=== PATIENT | female | born 1935 | race Caucasian/White ===

== ENCOUNTER 2019-07-15 16:15 | Inpatient (IN) ==
[2019-07-15 18:10] LABS: Bilirubin,Urine Small (Negative); Blood,Urine Negative (Negative); Clarity,Urine Cloudy (Clear); Color,Urine Dark Yellow (Yellow); Glucose,Urine (UA) Normal (Normal); Ketones,Urine 15 mg/dL (Negative); Leukocyte Esterase,Urine Moderate (Negative); Nitrite,Urine Negative (Negative); Protein,Urine Trace mg/dL (Neg-Trace); Specific Gravity,Urine 1.025 (1.010-1.025); Urobilinogen,Urine Normal (Normal)
[2019-07-15 18:12] LABS: Bacteria,Urine None Seen per hpf (None-Few); Hyaline Casts,Urine Few per lpf (None-Few); Squamous Epithelial Cell,Urine Many per lpf (None-Few); WBC,Urine 30-50 per hpf (0-3)
[2019-07-15 18:28] LABS: Calcium Oxalate Crystals,Urine Present
[2019-07-15] MEDS ORDERED: SODIUM CHLORIDE/NAHCO3/KCL/PEG 4,000 ML SOLN.RECON PO ONE ×2 (19:25→22:04)
[2019-07-15] MEDS ORDERED: *HR* HYDROcodone/Acet 5/325 mg TABLET PO ONE (22:44)
[2019-07-16] MEDS ORDERED: 0.9 % Sodium Chloride 1,000 ML IVC SCH (06:30)
[2019-07-16] MEDS ORDERED: Naloxone 0.4 MG/ML INJ IVP PRN (06:30)
[2019-07-16] MEDS ORDERED: Ipratropium/Albuterol Neb 3 ML IH PRN (06:33)
[2019-07-16] MEDS ORDERED: Albuterol 2.5 MG/3 ML NEBULIZER IH PRN (06:33)
[2019-07-16 07:25] LABS: Hematocrit 37.3 % (35.3-44.9); Hemoglobin 11.8 g/dL (11.5-15.4); Mean Corpuscular HGB Conc 31.6 g/dL (31.6-35.5); Mean Corpuscular Hemoglobin 30.6 pg (28.0-33.3); Mean Corpuscular Volume 96.9 fL (83.0-100.0); Mean Platelet Volume 8.8 fL (9.4-12.4); Platelet Count 311 K/mcL (140-400); Red Blood Count 3.85 M/mcL (3.82-4.97); Red Cell Distribution Width 12.5 % (11.5-14.5); White Blood Count 7.6 K/mcL (4.3-11.1)
[2019-07-16 07:46] LABS: BUN/Creatinine Ratio 19 (6-26); Blood Urea Nitrogen 17 mg/dL (8-23); Calcium 9.4 mg/dL (8.6-10.3); Carbon Dioxide 27 mEq/L (23-29); Chloride 104 mEq/L (98-107); Glucose 90 mg/dL (70-105); Magnesium 1.9 mg/dL (1.6-2.6); Osmolality,Calculated 287 (280-300); Potassium 3.9 mEq/L (3.5-5.1); Sodium 138 mEq/L (136-145); eGFR For African Americans > 60 (> 60); eGFR For Non-African Americans > 60 (> 60)
[2019-07-16] MEDS: predniSONE 5 MG TABLET PO SCH (08:01)
[2019-07-16] MEDS: Gabapentin 100 MG CAPSULE PO SCH ×2 (08:01→20:29)
[2019-07-16] MEDS: Aspirin 81 MG TAB.CHEW PO SCH ×2 (08:01→20:29)
[2019-07-16] MEDS: Lisinopril 20 MG TABLET PO SCH (08:01)
[2019-07-16] MEDS: Famotidine 20 MG TABLET PO SCH (08:02)
[2019-07-16] MEDS: Verapamil ER (24 HR) 240 MG TABLET.ER PO SCH (08:03)
[2019-07-16] MEDS ORDERED: Dextrose Gel 15 GM/37.5 ML TUBE PO PRN ×2 (09:53)
[2019-07-16] MEDS ORDERED: D5% in Water 1,000 ML IVC PRN (09:53)
[2019-07-16] MEDS ORDERED: *HR* Dextrose 50 % in Water (Syg) 50 ML SYRINGE IVP PRN (09:53)
[2019-07-16] MEDS ORDERED: D5% in 0.9% NACL 1,000 ML IVC SCH (10:00)
[2019-07-16] MEDS: Insulin LISPRO 300 UNITS/3 ML VIAL SQ SCH ×2 (11:33→18:08)
[2019-07-16] MEDS ORDERED: Simethicone 80 MG TAB.CHEW PO PRN (15:00)
[2019-07-16] MEDS ORDERED: *HR* FentaNYL PATCH 25 MCG PATCH TD SCH (18:00)
[2019-07-16] MEDS: traZODone 50 MG TABLET PO SCH (20:29)
[2019-07-17 06:12] LABS: Hematocrit 34.6 % (35.3-44.9); Mean Corpuscular HGB Conc 31.8 g/dL (31.6-35.5); Mean Corpuscular Volume 97.5 fL (83.0-100.0); Mean Platelet Volume 8.6 fL (9.4-12.4); Platelet Count 267 K/mcL (140-400); Red Blood Count 3.55 M/mcL (3.82-4.97); Red Cell Distribution Width 12.4 % (11.5-14.5); White Blood Count 6.6 K/mcL (4.3-11.1)
[2019-07-17 06:31] LABS: BUN/Creatinine Ratio 19 (6-26); Blood Urea Nitrogen 14 mg/dL (8-23); Calcium 9.3 mg/dL (8.6-10.3); Carbon Dioxide 29 mEq/L (23-29); Chloride 107 mEq/L (98-107); Glucose 95 mg/dL (70-105); Osmolality,Calculated 294 (280-300); Potassium 4.1 mEq/L (3.5-5.1); Sodium 142 mEq/L (136-145); eGFR For African Americans > 60 (> 60); eGFR For Non-African Americans > 60 (> 60)
[2019-07-17] MEDS: Lisinopril 20 MG TABLET PO SCH (08:27)
[2019-07-17] MEDS: Verapamil ER (24 HR) 240 MG TABLET.ER PO SCH (08:27)
[2019-07-17] MEDS: Gabapentin 100 MG CAPSULE PO SCH ×2 (08:27→21:32)
[2019-07-17] MEDS: Famotidine 20 MG TABLET PO SCH (08:27)
[2019-07-17] MEDS: predniSONE 5 MG TABLET PO SCH (08:28)
[2019-07-17] MEDS: Aspirin 81 MG TAB.CHEW PO SCH ×2 (08:28→21:33)
[2019-07-17] MEDS ORDERED: Ibuprofen 400 MG TABLET PO ONE (12:04)
[2019-07-17] MEDS ORDERED: Acetaminophen 325 MG TABLET PO PRN (13:28)
[2019-07-17] MEDS: Budesonide Neb 0.25 MG/2 ML IH SCH ×2 (20:47→21:34)
[2019-07-17] MEDS: traZODone 50 MG TABLET PO SCH (21:33)
[2019-07-18 01:19] LABS: Hematocrit 35.8 % (35.3-44.9); Hemoglobin 11.3 g/dL (11.5-15.4); Mean Corpuscular HGB Conc 31.6 g/dL (31.6-35.5); Mean Corpuscular Hemoglobin 30.7 pg (28.0-33.3); Mean Corpuscular Volume 97.3 fL (83.0-100.0); Mean Platelet Volume 9.8 fL (9.4-12.4); Platelet Count 262 K/mcL (140-400); Red Blood Count 3.68 M/mcL (3.82-4.97); Red Cell Distribution Width 12.4 % (11.5-14.5); White Blood Count 8.5 K/mcL (4.3-11.1)
[2019-07-18 01:38] LABS: BUN/Creatinine Ratio 18 (6-26); Blood Urea Nitrogen 18 mg/dL (8-23); Calcium 9.8 mg/dL (8.6-10.3); Carbon Dioxide 29 mEq/L (23-29); Chloride 105 mEq/L (98-107); Glucose 120 mg/dL (70-105); Osmolality,Calculated 291 (280-300); Potassium 4.2 mEq/L (3.5-5.1); Sodium 139 mEq/L (136-145); eGFR For African Americans > 60 (> 60); eGFR For Non-African Americans 53 (> 60)
[2019-07-18] MEDS: Budesonide Neb 0.25 MG/2 ML IH SCH (07:39)
[2019-07-18] MEDS ORDERED: Patient Taking Own Medication 1 EACH IH SCH (09:00)
[2019-07-18] MEDS ORDERED: Famotidine 20 MG TABLET PO SCH (09:00)
[2019-07-18] MEDS: Verapamil ER (24 HR) 240 MG TABLET.ER PO SCH (09:57)
[2019-07-18] MEDS: Lisinopril 20 MG TABLET PO SCH (09:57)
[2019-07-18] MEDS: Aspirin 81 MG TAB.CHEW PO SCH (10:00)
[2019-07-18] MEDS: Gabapentin 100 MG CAPSULE PO SCH (10:00)
[2019-07-18] MEDS ORDERED: Isovue-300 50ML VIAL ONE (17:25)
[2019-07-18] MEDS ORDERED: *HR* FentaNYL (PF) 100 MCG/2 ML VIAL ONE (17:31)
[2019-07-18] MEDS ORDERED: *HR* Propofol 200 MG/20 ML VIAL IVP ONE (17:31)
[2019-07-18] MEDS ORDERED: Acetaminophen IV 1,000 MG/100 ML INFUS..BTL ONE (17:32)
[2019-07-18] MEDS ORDERED: Lidocaine HCL 4 ML Topical Solution (Laryng-O-Jet Kit Sterile Pak) TP ONE (17:36)
[2019-07-18] MEDS ORDERED: Lidocaine -MPF 2% 2 ML VIAL ONE (17:36)
[2019-07-18] MEDS ORDERED: *HR* Succinylcholine 200 MG/10 ML VIAL IVP ONE (17:36)
[2019-07-18] MEDS ORDERED: *HR* Rocuronium Bromide 50 MG/5 ML VIAL ONE (17:36)
[2019-07-18] MEDS ORDERED: Ondansetron 4 MG/2 ML VIAL ONE (17:54)
[2019-07-18] MEDS ORDERED: EPHEDrine 50 MG/ML VIAL ONE (18:02)
[2019-07-18] MEDS ORDERED: *HR* OxyCODONE Immed Rel 5 MG TABLET PO ONE (18:53)
[2019-07-18] MEDS ORDERED: Ringers Solution, Lactated 1,000 ML ONE (19:18)
[2019-07-18] MEDS ORDERED: Ketoconazole Shampoo 120 ML BOTTLE TP PRN (19:48)
[2019-07-18] MEDS ORDERED: Albuterol 2.5 MG/3 ML NEBULIZER IH PRN (19:48)
[2019-07-18] MEDS ORDERED: *HR* OxyCODONE Immed Rel 5 MG TABLET PO PRN (19:48)
[2019-07-18] MEDS ORDERED: NON-FORMULARY MEDICATION 1 EACH EACH (Cranberry 500 MG) PO SCH (21:00)
[2019-07-18] MEDS: Lactobacillus 1 EACH CAP.SPRINK PO SCH (21:39)
[2019-07-19 07:08] LABS: Basophils % 0.4 %; Eosinophils # 0.2 K/mcL (0.0-0.6); Eosinophils % 3.2 %; Hematocrit 34.6 % (35.3-44.9); Hemoglobin 10.6 g/dL (11.5-15.4); Immature Granulocytes % 0.4 % (0-4); Lymphocytes # 1.1 K/mcL (0.6-4.6); Lymphocytes % 18.5 %; Mean Corpuscular HGB Conc 30.6 g/dL (31.6-35.5); Mean Corpuscular Hemoglobin 30.5 pg (28.0-33.3); Mean Corpuscular Volume 99.7 fL (83.0-100.0); Mean Platelet Volume 8.8 fL (9.4-12.4); Monocytes # 0.5 K/mcL (0.0-1.3); Monocytes % 8.1 %; Neutrophils # 3.9 K/mcL (1.6-8.9); Platelet Count 229 K/mcL (140-400); Red Blood Count 3.47 M/mcL (3.82-4.97); Red Cell Distribution Width 12.4 % (11.5-14.5); Segmented Neutrophils % 69.4 %; White Blood Count 5.7 K/mcL (4.3-11.1)
[2019-07-19] MEDS: Ondansetron 4 MG/2 ML VIAL IVP PRN ×2 (07:19→20:01)
[2019-07-19 07:28] LABS: Alanine Aminotransferase 11 Units/L (7-52); Albumin 2.9 g/dL (3.5-5.7); Albumin/Globulin Ratio 1.4 (1.1-2.2); Alkaline Phosphatase 69 Units/L (34-104); Aspartate Amino Transferase 18 Units/L (13-39); BUN/Creatinine Ratio 17 (6-26); Bilirubin,Total 0.3 mg/dL (0.3-1.0); Blood Urea Nitrogen 14 mg/dL (8-23); Calcium 9.4 mg/dL (8.6-10.3); Carbon Dioxide 32 mEq/L (23-29); Chloride 106 mEq/L (98-107); Globulin 2.1 g/dL (2.4-3.5); Glucose 93 mg/dL (70-105); Osmolality,Calculated 296 (280-300); Potassium 4.2 mEq/L (3.5-5.1); Sodium 143 mEq/L (136-145); eGFR For African Americans > 60 (> 60); eGFR For Non-African Americans > 60 (> 60)
[2019-07-19] MEDS ORDERED: Acetaminophen 325 MG TABLET PO PRN (07:53)
[2019-07-19] MEDS ORDERED: Ipratropium/Albuterol Neb 3 ML IH PRN (07:54)
[2019-07-19] MEDS ORDERED: Naloxone 0.4 MG/ML INJ IVP PRN (07:58)
[2019-07-19] MEDS ORDERED: *HR* OxyCODONE Immed Rel 5 MG TABLET PO PRN (07:59)
[2019-07-19] MEDS ORDERED: *HR* OxyCODONE Immed Rel 15 MG TABLET PO PRN (08:02)
[2019-07-19] MEDS: Famotidine 20 MG TABLET PO SCH (09:21)
[2019-07-19] MEDS: Gabapentin 100 MG CAPSULE PO SCH ×2 (09:25→20:01)
[2019-07-19] MEDS: Lisinopril 20 MG TABLET PO SCH (09:39)
[2019-07-19] MEDS: *HR* FentaNYL PATCH 25 MCG PATCH TD SCH (09:42)
[2019-07-19] MEDS: Lactobacillus 1 EACH CAP.SPRINK PO SCH ×2 (09:50→20:01)
[2019-07-19] MEDS: Budesonide Neb 0.25 MG/2 ML IH SCH ×2 (11:01→22:44)
[2019-07-19] MEDS: Nystatin POWDER 30 GM BOTTLE TP SCH ×2 (14:20→20:01)
[2019-07-19 20:12] LABS: Bilirubin,Urine Negative (Negative); Blood,Urine Trace (Negative); Clarity,Urine Cloudy (Clear); Color,Urine Yellow (Yellow); Glucose,Urine (UA) Normal (Normal); Ketones,Urine Negative (Negative); Leukocyte Esterase,Urine Large (Negative); Nitrite,Urine Negative (Negative); Protein,Urine Negative (Neg-Trace); Specific Gravity,Urine 1.016 (1.010-1.025); Urobilinogen,Urine Normal (Normal)
[2019-07-19 20:14] LABS: Bacteria,Urine None Seen per hpf (None-Few); Hyaline Casts,Urine None Seen per lpf (None-Few); RBC,Urine 0-3 per hpf (0-3); Squamous Epithelial Cell,Urine Many per lpf (None-Few); WBC,Urine TNTC per hpf (0-3)
[2019-07-20] MEDS: Acetaminophen 325 MG TABLET PO PRN ×3 (00:42→17:04)
[2019-07-20] MEDS: Budesonide Neb 0.25 MG/2 ML IH SCH ×2 (08:19→22:08)
[2019-07-20] MEDS ORDERED: cefTRIAXone 1,000 MG in 0.9 % Sodium Chloride Mini Bag 100 ML IVPB SCH (09:00)
[2019-07-20] MEDS: Lactobacillus 1 EACH CAP.SPRINK PO SCH ×2 (09:07→20:01)
[2019-07-20] MEDS: Famotidine 20 MG TABLET PO SCH (09:08)
[2019-07-20] MEDS: Gabapentin 100 MG CAPSULE PO SCH ×2 (09:08→20:00)
[2019-07-20] MEDS: Lisinopril 20 MG TABLET PO SCH (09:08)
[2019-07-20] MEDS: Nystatin POWDER 30 GM BOTTLE TP SCH ×2 (09:09→20:01)
[2019-07-20 10:05] LABS: Basophils % 0.6 %; Eosinophils # 0.2 K/mcL (0.0-0.6); Eosinophils % 3.3 %; Hemoglobin 11.2 g/dL (11.5-15.4); Immature Granulocytes % 0.2 % (0-4); Lymphocytes # 1.3 K/mcL (0.6-4.6); Lymphocytes % 23.3 %; Mean Corpuscular HGB Conc 30.3 g/dL (31.6-35.5); Mean Corpuscular Hemoglobin 30.8 pg (28.0-33.3); Mean Corpuscular Volume 101.6 fL (83.0-100.0); Mean Platelet Volume 9.2 fL (9.4-12.4); Monocytes # 0.5 K/mcL (0.0-1.3); Monocytes % 8.5 %; Neutrophils # 3.5 K/mcL (1.6-8.9); Platelet Count 234 K/mcL (140-400); Red Blood Count 3.64 M/mcL (3.82-4.97); Red Cell Distribution Width 12.1 % (11.5-14.5); Segmented Neutrophils % 64.1 %; White Blood Count 5.4 K/mcL (4.3-11.1)
[2019-07-20 10:21] LABS: Alanine Aminotransferase 8 Units/L (7-52); Albumin 3.1 g/dL (3.5-5.7); Albumin/Globulin Ratio 1.3 (1.1-2.2); Alkaline Phosphatase 66 Units/L (34-104); Aspartate Amino Transferase 17 Units/L (13-39); BUN/Creatinine Ratio 13 (6-26); Bilirubin,Total 0.4 mg/dL (0.3-1.0); Blood Urea Nitrogen 11 mg/dL (8-23); Calcium 9.7 mg/dL (8.6-10.3); Carbon Dioxide 32 mEq/L (23-29); Chloride 102 mEq/L (98-107); Globulin 2.4 g/dL (2.4-3.5); Glucose 101 mg/dL (70-105); Osmolality,Calculated 288 (280-300); Potassium 4.1 mEq/L (3.5-5.1); Sodium 139 mEq/L (136-145); Total Protein 5.5 g/dL (6.4-8.9); eGFR For African Americans > 60 (> 60); eGFR For Non-African Americans > 60 (> 60)
[2019-07-20] MEDS: REVEFENACIN 175 MCG IH SCH (11:10)
[2019-07-20] MEDS: Ipratropium/Albuterol Neb 3 ML IH SCH ×2 (15:25→22:08)
[2019-07-20] MEDS: Budesonide/Formoterol 160/4.5 1 PUFF INH IH SCH (22:08)
[2019-07-21] MEDS: Ipratropium/Albuterol Neb 3 ML IH SCH ×4 (04:28→22:18)
[2019-07-21 05:42] LABS: Basophils % 0.5 %; Eosinophils # 0.2 K/mcL (0.0-0.6); Eosinophils % 3.2 %; Hematocrit 36.5 % (35.3-44.9); Hemoglobin 11.3 g/dL (11.5-15.4); Immature Granulocytes % 0.5 % (0-4); Lymphocytes # 1.7 K/mcL (0.6-4.6); Lymphocytes % 28.1 %; Mean Corpuscular Hemoglobin 30.9 pg (28.0-33.3); Mean Corpuscular Volume 99.7 fL (83.0-100.0); Mean Platelet Volume 8.7 fL (9.4-12.4); Monocytes # 0.6 K/mcL (0.0-1.3); Monocytes % 10.7 %; Neutrophils # 3.4 K/mcL (1.6-8.9); Platelet Count 261 K/mcL (140-400); Red Blood Count 3.66 M/mcL (3.82-4.97); White Blood Count 5.9 K/mcL (4.3-11.1)
[2019-07-21 05:49] LABS: INR 1.1; Prothrombin Time 12.5 Seconds (9.4-12.1)
[2019-07-21 06:00] LABS: Alanine Aminotransferase 8 Units/L (7-52); Albumin 3.1 g/dL (3.5-5.7); Albumin/Globulin Ratio 1.3 (1.1-2.2); Alkaline Phosphatase 73 Units/L (34-104); Aspartate Amino Transferase 17 Units/L (13-39); BUN/Creatinine Ratio 15 (6-26); Bilirubin,Total 0.3 mg/dL (0.3-1.0); Blood Urea Nitrogen 13 mg/dL (8-23); Carbon Dioxide 34 mEq/L (23-29); Chloride 102 mEq/L (98-107); Globulin 2.3 g/dL (2.4-3.5); Glucose 101 mg/dL (70-105); Osmolality,Calculated 292 (280-300); Potassium 4.2 mEq/L (3.5-5.1); Sodium 141 mEq/L (136-145); Total Protein 5.4 g/dL (6.4-8.9); eGFR For African Americans > 60 (> 60); eGFR For Non-African Americans > 60 (> 60)
[2019-07-21] MEDS: Acetaminophen 325 MG TABLET PO PRN ×3 (08:58→23:24)
[2019-07-21] MEDS: Lisinopril 20 MG TABLET PO SCH (08:58)
[2019-07-21] MEDS: Lactobacillus 1 EACH CAP.SPRINK PO SCH ×2 (08:58→20:06)
[2019-07-21] MEDS: Famotidine 20 MG TABLET PO SCH (08:59)
[2019-07-21] MEDS: Gabapentin 100 MG CAPSULE PO SCH ×2 (08:59→20:06)
[2019-07-21] MEDS: Nystatin POWDER 30 GM BOTTLE TP SCH ×2 (09:01→20:07)
[2019-07-21] MEDS: REVEFENACIN 175 MCG IH SCH (09:01)
[2019-07-21] MEDS: Budesonide/Formoterol 160/4.5 1 PUFF INH IH SCH ×2 (10:28→22:18)
[2019-07-21] MEDS: Budesonide Neb 0.25 MG/2 ML IH SCH ×2 (10:28→22:16)
[2019-07-21] MEDS ORDERED: Patient Taking Own Medication 1 EACH TP SCH (13:15)
[2019-07-21] MEDS: Ondansetron 4 MG/2 ML VIAL IVP PRN (16:13)
[2019-07-21] MEDS: Albuterol 2.5 MG/3 ML NEBULIZER IH SCH (21:41)
[2019-07-21] MEDS: Ringers Solution, Lactated 1,000 ML IVC SCH (21:42)
[2019-07-22] MEDS: Ipratropium/Albuterol Neb 3 ML IH SCH ×4 (03:30→21:48)
[2019-07-22 05:58] LABS: Basophils % 0.4 %; Eosinophils # 0.1 K/mcL (0.0-0.6); Eosinophils % 2.8 %; Hematocrit 34.3 % (35.3-44.9); Hemoglobin 10.8 g/dL (11.5-15.4); Immature Granulocytes % 0.4 % (0-4); Lymphocytes # 0.9 K/mcL (0.6-4.6); Lymphocytes % 18.7 %; Mean Corpuscular HGB Conc 31.5 g/dL (31.6-35.5); Mean Corpuscular Volume 98.6 fL (83.0-100.0); Mean Platelet Volume 8.9 fL (9.4-12.4); Monocytes # 0.6 K/mcL (0.0-1.3); Monocytes % 11.1 %; Neutrophils # 3.4 K/mcL (1.6-8.9); Platelet Count 240 K/mcL (140-400); Red Blood Count 3.48 M/mcL (3.82-4.97); Red Cell Distribution Width 12.1 % (11.5-14.5); Segmented Neutrophils % 66.6 %
[2019-07-22 06:17] LABS: Alanine Aminotransferase 7 Units/L (7-52); Albumin/Globulin Ratio 1.4 (1.1-2.2); Alkaline Phosphatase 71 Units/L (34-104); Aspartate Amino Transferase 15 Units/L (13-39); BUN/Creatinine Ratio 17 (6-26); Bilirubin,Total 0.3 mg/dL (0.3-1.0); Blood Urea Nitrogen 13 mg/dL (8-23); Carbon Dioxide 33 mEq/L (23-29); Chloride 103 mEq/L (98-107); Globulin 2.2 g/dL (2.4-3.5); Glucose 103 mg/dL (70-105); Osmolality,Calculated 296 (280-300); Potassium 4.2 mEq/L (3.5-5.1); Sodium 143 mEq/L (136-145); Total Protein 5.2 g/dL (6.4-8.9); eGFR For African Americans > 60 (> 60); eGFR For Non-African Americans > 60 (> 60)
[2019-07-22 06:46] VITALS: BP 162/83
[2019-07-22] MEDS: Famotidine 20 MG TABLET PO SCH (09:03)
[2019-07-22] MEDS: Lisinopril 20 MG TABLET PO SCH (09:03)
[2019-07-22] MEDS: *HR* FentaNYL PATCH 25 MCG PATCH TD SCH (09:04)
[2019-07-22] MEDS: Lactobacillus 1 EACH CAP.SPRINK PO SCH (09:04)
[2019-07-22] MEDS: Gabapentin 100 MG CAPSULE PO SCH (09:04)
[2019-07-22] MEDS ORDERED: *HR* FentaNYL PATCH 25 MCG PATCH TD SCH (10:00)
[2019-07-22] MEDS: Budesonide/Formoterol 160/4.5 1 PUFF INH IH SCH ×2 (10:26→21:48)
[2019-07-22] MEDS: Budesonide Neb 0.25 MG/2 ML IH SCH ×2 (10:28→21:48)
[2019-07-22] MEDS: REVEFENACIN 175 MCG IH SCH (11:04)
[2019-07-22] MEDS ORDERED: Sennosides/Docusate Sodium TABLET PO ONE (11:21)
[2019-07-22 12:31] LABS: Kappa Qnt Free Light Chains 2.15 mg/dL (0.33-1.94); Lambda Qnt Free Light Chains 1.61 mg/dL (0.57-2.63)
[2019-07-22 12:33] LABS: Urine Collection Volume RANDOM mL
[2019-07-22 12:47] LABS: Immunoglobulin A 180 mg/dL (68-408); Immunoglobulin G 616 mg/dL (768-1632); Immunoglobulin M 83 mg/dL (35-263)
[2019-07-23 00:37] LABS: Alpha 2 Globulin (PEP) 0.81 g/dL (0.48-1.05)
[2019-07-23] MEDS ORDERED: Sennosides 8.6 MG TABLET PO ONE (10:01)
[2019-07-23 10:26] LABS: IFE Reflexed NOT DONE
== END 2019-07-22 19:15 | disposition hospice, home (50) | DRG 478 ==
LOC: EMEROOARM 16:15 → 3NENU 16:15 → SUATTDRO 23:54 → 3NENU 07-16 01:03 → 3ANU 07-20 17:56 → 3NENU 07-21 07:36
PROVIDERS: ADMIT Family Medicine; ATTEND Internal Medicine